=== PATIENT | female | born 1970 | race Caucasian/White ===

== ENCOUNTER → 2018-01-08 | Outpatient (CLI) | payer OTHER ==
[~2018-01-08] MED LIST: DCS100C PO; FERR-57 PO; FLC1T PO; GLYB5TAB6 PO; HYDR1TAB75 PO; IBP800T PO; MECL-124 PO
--- NOTE | 2018-01-08 11:13 | Diagnostic Imaging Report ---
INDICATION: Routine screening. COMPARISON: 12/17/2013 and 11/02/2012. TECHNIQUE: 2D and 3D bilateral screening mammography was performed with CAD. FINDINGS: Scattered fibroglandular densities are identified bilaterally. The parenchymal pattern is stable. No discrete mass or malignant appearing microcalcifications are seen. The axillae are unremarkable. IMPRESSION: No mammographic features suspicious for malignancy are identified. ACR BI-RADS Category 1: Negative. Result letter will be mailed to the patient. Note: At least 10% of breast cancer is not imaged by mammography. Dictated by: Dictated on workstation # [id number]
== END ==
LOC: RAD 07:21
PROVIDERS: ATTEND Nurse Practitioner Primary Care
DX: Z12.31 Encounter for screening mammogram for malignant neoplasm of breast (principal)
CPT/HCPCS: 77067

== ENCOUNTER → 2021-03-26 | Outpatient (CLI) | payer OTHER ==
--- NOTE | 2021-03-26 10:51 | Diagnostic Imaging Report ---
INDICATION: Bump on forehead for 20 years. TECHNIQUE: Multiple contiguous axial images were obtained through the brain without the use of intravenous contrast. Auto Exposure Controls were utilized during the CT exam to meet ALARA standards for radiation dose reduction. Noncontrast brain CT is performed and compared with 07/04/2009. There are no extraaxial fluid collections. No intracranial hemorrhage. No intracranial mass or mass effect. No midline shift. The ventricles are normal in size and position. There were no focal parenchymal abnormalities in the brain. Orbital contents appear unremarkable. The visualized portions of the mastoid air cells are well aerated. Visualized portions of the ethmoid air cells and sphenoid sinuses are clear. The right maxillary sinus appears clear. The left maxillary sinus appears hypoplastic and partially opacified, similar to the prior study. Calvarial windows show no fracture. There is a focal sclerotic lesion in the right frontal calvarium projecting anteriorly. This measured about 9 mm in transverse diameter. The finding has the appearance of a benign osteoma, and has not changed compared with 07/04/2009. IMPRESSION: No acute intracranial abnormality. 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 Dictated by: Dictated on workstation # [id number]
== END ==
LOC: RAD 09:45
PROVIDERS: ATTEND Surgery
DX: R22.0 Localized swelling, mass and lump, head (principal); M26.02 Maxillary hypoplasia
CPT/HCPCS: 70450

== ENCOUNTER 2022-04-03 14:01 | Emergency (ER) | payer SELFPAY ==
[~2022-04-03] VITALS: Ht 160 cm; Wt 70.0 kg
--- NOTE | 2022-04-03 15:05 | ED Abdominal Pain ---
General Chief Complaint: Abdominal/GI Problems Stated Complaint: ABD PAIN Nursing Triage Note: Patient presented to the ER today with complaints of abdominal pain as well as burning sensation in her epigastric area that began last night. Patient states she has been evaluated at [facility] and is to be scheduled for a colonoscopy with Dr. Epperson soon. She states last bowel movement was this morning and reports diarrhea and pain. Source of Information: Patient Exam Limitations: No Limitations History of Present Illness Date Seen by Provider: Apr 03, 2022 Time Seen by Provider: 14:51 Initial Comments Patient is a 52-year-old female who presents to the emergency department, Slovak-speaking with her daughter acting as engine specialist chief complaint epigastric abdominal pain and nausea, onset yesterday. Patient states that she brought fecal occult blood samples to [facility] clinic last week that were positive for blood. She relates that she was told that she was "anemic". She was given a prescription that she cannot recall the name of and advised to take it daily. She was referred to Dr. Epperson for colonoscopy. This morning she had some diarrhea with more intense pain. She states the pain radiates from the mid abdomen up into her lower chest. Nausea without vomiting. No dysuria urgency or frequency. No fevers. Only prior abdominal surgery is 2 C-sections. She does not smoke or drink. She does not use NSAIDs or aspirin. She only uses Tylenol. She has never had endoscopy/colonoscopy in the past. All other review of systems reviewed and negative except as stated. Timing/Duration: 1-2 Days Severity/Quality: Moderate, Aching, Burning Location: Epigastric Radiation: Chest Activities at Onset: None Modifying Factors: Worsens With Eating Associated Symptoms: Nausea/Vomiting (nausea without vomiting) Allergies and Home Medications Allergies Coded Allergies: No Known Drug Allergies (Verified , 01/09/09) Patient Home Medication List Home Medication List Reviewed: Yes Docusate Sodium (Colace) 100 Mg Capsule, 100 MG PO BID, (Reported) Entered as Reported by: TERESA UMANA on 07/30/10 0996 Ferrous Sulfate (Ferrous Sulfate) 325 Mg Tablet, 325 MG PO DAILY, (Reported) Entered as Reported by: DANIEL CHENG on 07/26/10 1301 Folic Acid (Folic Acid Tab) 1 Mg Tab, 1 EACH PO DAILY, (Reported) Entered as Reported by: DANIEL CHENG on 07/26/10 1301 Hydrocodone Bit/Acetaminophen (Hydrocodone-Apap 7.5-650 Tab) 1 Each Tablet, 1-2 EACH PO Q3 HR PRN, (Reported) Entered as Reported by: TERESA UMANA on 07/30/10 09 Ibuprofen (Motrin) 800 Mg Tab, 800 MG PO Q6H PRN, (Reported) Entered as Reported by: TERESA UMANA on 07/30/10932 Ondansetron (Ondansetron Odt) 4 Mg Tab.rapdis, 4 MG PO Q8H PRN for nausea Prescribed by: AFUA MIRELES on 04/03/22 1635 Pantoprazole Sodium (Protonix) 40 Mg Granpkt.dr, 40 MG PO DAILY Prescribed by: AFUA MIRELES on 04/03/22 1634 Review of Systems Review of Systems Constitutional: see HPI EENTM: No Symptoms Reported Respiratory: No Symptoms Reported Cardiovascular: No Symptoms Reported Gastrointestinal: Abdominal Pain, Nausea Genitourinary: No Symptoms Reported Musculoskeletal: no symptoms reported Skin: no symptoms reported All Other Systems Reviewed Negative Unless Noted: Yes Past Glcgvqd-Ypnamu-Dtaoic Hx Patient Social History Tobacco Use?: No Substance use?: No Alcohol Use?: No Past Medical History Reproductive Disorders: No Physical Exam Vital Signs Vital Signs - First Documented 04/03/22 14:54 Temp 36.5 Pulse 86 Resp 16 B/P (MAP) 162/84 (110) Pulse Ox 99 O2 Delivery Room Air Capillary Refill : Less Than 3 Seconds Height/Weight/BMI Height: '" Weight: lbs. oz. kg; 27.00 BMI Method: General Appearance: WD/WN, no apparent distress HEENT: PERRL/EOMI; No pale conjunctivae (R), No pale conjunctivae (L) Neck: normal inspection Respiratory: lungs clear, normal breath sounds, no respiratory distress, no accessory muscle use Cardiovascular: regular rate, rhythm Gastrointestinal: soft, tenderness (mild epigastric tenderness) Rectal: deferred Extremities: normal range of motion, non-tender, normal inspection, no pedal edema Neurologic/Psychiatric: alert, normal mood/affect, oriented x 3 Skin: normal color, warm/dry Progress/Results/Core Measures Results/Orders Lab Results Laboratory Tests Test 04/03/22 14:29 Range/Units White Blood Count 6.9 4.3-11.0 10^3/uL Red Blood Count 5.16 H 3.80-5.11 10^6/uL Hemoglobin 12.5 11.5-16.0 g/dL Hematocrit 40 35-52 % Mean Corpuscular Volume 78 L 80-99 fL Mean Corpuscular Hemoglobin 24 L 25-34 pg Mean Corpuscular Hemoglobin Concent 31 L 32-36 g/dL Red Cell Distribution Width 10.0-14.5 % Platelet Count 217 130-400 10^3/uL Mean Platelet Volume 9.8 9.0-12.2 fL Immature Granulocyte % (Auto) 0 % Neutrophils (%) (Auto) 72 42-75 % Lymphocytes (%) (Auto) 21 12-44 % Monocytes (%) (Auto) 6 0-12 % Eosinophils (%) (Auto) 0 0-10 % Basophils (%) (Auto) 0 0-10 % Neutrophils # (Auto) 4.9 1.8-7.8 X 10^3 Lymphocytes # (Auto) 1.5 1.0-4.0 X 10^3 Monocytes # (Auto) 0.4 0.0-1.0 X 10^3 Eosinophils # (Auto) 0.0 0.0-0.3 10^3/uL Basophils # (Auto) 0.0 0.0-0.1 10^3/uL Immature Granulocyte # (Auto) 0.0 0.0-0.1 10^3/uL Sodium Level 140 135-145 MMOL/L Potassium Level 3.9 3.6-5.0 MMOL/L Chloride Level 102 98-107 MMOL/L Carbon Dioxide Level 23 21-32 MMOL/L Anion Gap 15 H 5-14 MMOL/L Blood Urea Nitrogen 10 7-18 MG/DL Creatinine 0.73 0.60-1.30 MG/DL Estimat Glomerular Filtration Rate 100 BUN/Creatinine Ratio 14 Glucose Level 118 H 70-105 MG/DL Calcium Level 10.1 8.5-10.1 MG/DL Corrected Calcium 8.5-10.1 MG/DL Total Bilirubin 0.4 0.1-1.0 MG/DL Aspartate Amino Transf (AST/SGOT) 22 5-34 U/L Alanine Aminotransferase (ALT/SGPT) 27 0-55 U/L Alkaline Phosphatase 65 40-136 U/L Total Protein 8.4 H 6.4-8.2 GM/DL Albumin 4.6 H 3.2-4.5 GM/DL My Orders Orders - AFUA MIRELES MD Ed Iv/Invasive Line Start (04/03/22 15:03) Cbc With Automated Diff (04/03/22 15:03) Comprehensive Metabolic Panel (04/03/22 15:03) Fecal Occult Bedside (04/03/22 15:03) Pantoprazole Injection (Protonix Injecti (04/03/22 15:45) Sucralfate Tablet (Carafate Tablet) (04/03/22 15:45) Antacid Suspension (Mylanta Suspension (04/03/22 15:45) Lidocaine 2% Viscous 15 Ml (Xylocaine Vi (04/03/22 15:45) Medications Given in ED Current Medications Medications Dose Ordered Sig/Derek Route Start Time Stop Time Status Last Admin Dose Admin Al Hydrox/Mg Hydrox/Simethicone 30 ml ONCE ONCE PO 04/03/22 15:45 04/03/22 15:46 DC 04/03/22 16:07 30 ML Lidocaine HCl 5 ml ONCE ONCE PO 04/03/22 15:45 04/03/22 15:46 DC 04/03/22 16:07 5 ML Pantoprazole 40 mg ONCE ONCE IV 04/03/22 15:45 04/03/22 15:46 DC 04/03/22 16:06 40 MG Sucralfate 1 gm ONCE ONCE PO 04/03/22 15:45 04/03/22 15:46 DC 04/03/22 16:07 1 GM Vital Signs/I&O 04/03/22 14:54 Temp 36.5 Pulse 86 Resp 16 B/P (MAP) 162/84 (110) Pulse Ox 99 O2 Delivery Room Air Blood Pressure Mean: 110 Progress Progress Note : Time: 16:24 Progress Note Patient feels much better after her medications. Labs are all WNL. I deferred feval occult blood testing as the patient stated she had +blood in stool at [facility] last week and her Hgb is stable here. Abdominal exam is reassuring. No involuntary guarding or exquisite tenderness. I am going to put her on a PPI and refer her to Dr Cook for colonoscopy. She is comfortable with this plan of care. All questions are sought and answered. Departure Impression Primary Impression: Epigastric abdominal pain Additional Impressions: Heartburn GI bleed by history Disposition: 01 HOME, SELF-CARE Condition: Improved Departure-Patient Inst. Decision time for Depature: 16:30 Referrals: [facility] [place]Family) Primary Care Physician CORNELL COOK BRETT D DO Patient Instructions: Acid Reflux and Gastroesophageal Reflux Disease in Adults Add. Discharge Instructions: Take the Protonix 40mg daily at night before bed. Zofran 4mg every 8 hours as needed for nausea. Try and avoid spicy foods until you follow up with Dr Cook or Dr Epperson. Call on Monday to schedule an appointment. You will need an "EGD and Colonsocopy" to evaluate the blood in your poop. If you have worsening pain, vomiting blood, passing bright red blood in your stool, fever or a passing out spell, please come back to the Emergency Department for re-evaluation. [address] el Protonix 40mg diariamente por la noche antes de acostarse. Zofran 4mg cada 8 horas segn sea necesario para las nuseas. Trate de evitar los alimentos picantes hasta que josefa un seguimiento con el Dr. Cook o el Dr. Epperson. Llame el rere por la maana para programar francisco javier nik. Necesitar francisco javier "EGD y colonsocopia" para evaluar la babs en sierra russell. Si tiene dolor que empeora, vmitos de babs, babs gertrude brillante en las heces, fiebre o un episodio de desmayo, regrese al [facility] para francisco javier reevaluacin. Scripts Ondansetron (Ondansetron Odt) 4 Mg Tab.rapdis 4 MG PO Q8H PRN for nausea, #15 TAB Prov: AFUA MIRELES MD 04/03/22 Pantoprazole Sodium (Protonix) 40 Mg Granpkt.dr 40 MG PO DAILY for 30 Days, #30 TAB Prov: AFUA MIRELES MD 04/03/22 Copy Copies To 1: CORNELL COOK DO Copies To 2: FABIENNE WILSON DO; ZACK EPPERSON DO AFUA MIRELES MD Apr 03, 2022 15:05
[2022-04-03 15:10] LABS: BASOPHILS % (AUTO) 0 % (0-10); EOSINOPHILS % (AUTO) 0 % (0-10); HEMATOCRIT 40 % (35-52); HEMOGLOBIN 12.5 g/dL (11.5-16.0); LYMPHOCYTES # (AUTO) 1.5 X 10^3 (1.0-4.0); LYMPHOCYTES % (AUTO) 21 % (12-44); MEAN CORPUSCULAR HEMOGLOBIN 24 pg (25-34); MEAN CORPUSCULAR HGB CONC 31 g/dL (32-36); MEAN CORPUSCULAR VOLUME 78 fL (80-99); MEAN PLATELET VOLUME 9.8 fL (9.0-12.2); MONOCYTES # (AUTO) 0.4 X 10^3 (0.0-1.0); MONOCYTES % (AUTO) 6 % (0-12); NEUTROPHILS # (AUTO) 4.9 X 10^3 (1.8-7.8); NEUTROPHILS % (AUTO) 72 % (42-75); PLATELET COUNT 217 10^3/uL (130-400); WHITE BLOOD COUNT 6.9 10^3/uL (4.3-11.0)
[2022-04-03 15:12] LABS: ALBUMIN 4.6 GM/DL (3.2-4.5)
[2022-04-03 15:13] LABS: CHLORIDE 102 MMOL/L (98-107); POTASSIUM 3.9 MMOL/L (3.6-5.0); SODIUM 140 MMOL/L (135-145)
[2022-04-03 15:14] LABS: CALCIUM 10.1 MG/DL (8.5-10.1)
[2022-04-03 15:15] LABS: GLUCOSE 118 MG/DL (70-105); TOTAL PROTEIN 8.4 GM/DL (6.4-8.2)
[2022-04-03 15:16] LABS: CARBON DIOXIDE 23 MMOL/L (21-32)
[2022-04-03 15:17] LABS: BILIRUBIN,TOTAL 0.4 MG/DL (0.1-1.0)
[2022-04-03 15:18] LABS: ALKALINE PHOSPHATASE 65 U/L (40-136)
[2022-04-03 15:19] LABS: CREATININE SERUM 0.73 MG/DL (0.60-1.30); GFR ESTIMATED 100
[2022-04-03 15:20] LABS: BUN/CREATININE RATIO 14
[2022-04-03 15:21] LABS: ALANINE AMINOTRANSFERASE 27 U/L (0-55)
[2022-04-03] MEDS ORDERED: LIDOCAINE 2% VISCOUS 15 ML UDC PO ONE (15:45)
[2022-04-03] MEDS ORDERED: ANTACID SUSP 30 ML UDC (MYLANTA) PO ONE (15:45)
[2022-04-03] MEDS ORDERED: PANTOPRAZOLE 40 MG (PROTONIX) VIAL IV ONE (15:45)
[2022-04-03] MEDS ORDERED: SUCRALFATE 1 GM (CARAFATE) TAB PO ONE (15:45)
[2022-04-03] MEDS ORDERED: PANT40SU PO (16:34)
[2022-04-03] MEDS ORDERED: ONDA4TAB11 PO (16:35)
[2022-04-03 16:52] VITALS: BP 141/76
== END 2022-04-03 16:54 | disposition home or self-care (01) ==
LOC: EDUNIT# 14:01 → ER 14:07
DX: R12 Heartburn (principal); R11.0 Nausea; Z87.19 Personal history of other diseases of the digestive system
CPT/HCPCS: 36415; 80053; 84703; 85025